=== PATIENT | female | born 1975 | race Caucasian/White ===

== ENCOUNTER 2022-02-20 16:30 | Emergency (ER) | payer BC, SELFPAY ==
[2022-02-20 17:05] VITALS: BP 115/82; PULSE 87; RESP 18; TEMP 36.1; O2SAT 100; BMI 30.8
--- NOTE | 2022-02-20 19:15 | ED.GENADULT ---
HPI - General Adult General Chief complaint: Extremity Pain/Injury, Upper Stated complaint: Possible infection in R arm Time Seen by Provider: 02/20/22 19:04 History of Present Illness HPI narrative: This 46-year-old female comes in with pain in the dorsal aspect of her right hand that extends up into her arm. She states that she has had incision and drainage in the past about a couple months ago to remove infection from this area. She returned to this [place] facility where this was done a couple weeks ago and the doctor there attempted to aspirate fluid from the dorsal aspect of her right hand. She was placed on an antibiotic at that time and has completed that treatment. She states that this did not help her symptoms at all. She feels like it is an infection. She does not report any injury event otherwise. She does not report any fevers. Related Data Home Medications Medication Instructions Recorded Confirmed estradiol PO DAILY 02/20/22 fluoxetine PO DAILY 02/20/22 gabapentin PO TID 02/20/22 lisinopril 10 mg tablet 10 mg PO DAILY 02/20/22 02/20/22 oxycodone PO PRN 02/20/22 Previous Rx's Medication Instructions Recorded methylprednisolone 4 mg tablets in See Rx Instructions PO .COMPLEX 02/20/22 a dose pack (Medrol (William)) #21 ea Allergies Allergy/AdvReac Type Severity Reaction Status Date / Time tramadol Allergy Intermediate shuts Verified 02/20/22 17:11 airway down aloe vera [From Flexall] Allergy Mild Rash Verified 02/20/22 17:11 menthol [From Flexall] Allergy Mild Rash Verified 02/20/22 17:11 vitamin E (d-alpha Allergy Mild Rash Verified 02/20/22 17:11 tocopherol) [From Flexall] shell fish Allergy Mild throat Uncoded 02/20/22 17:11 closes up Review of Systems Status of ROS: Reports: 10 or more systems reviewed and unremarkable except as noted in History and below Narrative: Constitutional: No fevers, no weight gain or loss. Eyes: No discharge. No vision changes. HENT: No congestion, no sore throat, no ear pain. Cardiovascular: No chest pain, no palpitations. Respiratory: No shortness of breath, no wheezes, no cough. Gastrointestinal: No abdominal pain, no vomiting, no diarrhea. Genitourinary: No dysuria, no hematuria. Musculoskeletal: Normal range of motion. Right hand pain extending up her right arm as described above. Skin: No rashes, no pruritis. Neurological: No dizziness, weakness, sensory change, speech change. Endo/Heme/Allergies: No bruising or bleeding. No polydipsia. Pysch: no suicidality, no anxiety, no insomnia. All other systems reviewed and are negative. Exam Narrative: Exam Narrative: Constitutional: Well-developed, well-nourished, no acute distress. HEENT: Normocephalic, atraumatic. Neck: Normal range of motion. Nontender. Supple. Heart: Intact distal pulses. Lungs: No chest discomfort. No wheezes, rhonchi, or rales. Abdomen: Nontender. Back: Normal range of motion. Extremities: Normal range of motion. This patient has tenderness on the dorsal aspect of her right hand. There is a surgical scar that appears to be healing normally. She has a small lump at the end of the surgical wound. There is some diffuse mild findings of erythema but no symptoms typical of cellulitis or abscess. Skin: Intact. No rash. Warm. No erythema or pallor. Neurologic: No altered sensation. No weakness. Alert and oriented. Psychiatric: No suicidality. No anxiety or depression. No insomnia. Nursing notes and vitals signs are reviewed. Const: Vital Signs, click to edit/add: Vital Signs - 24 hr 02/20/22 17:05 Temperature 97.0 F L Pulse Rate [Right Pulse Oximeter] 87 Respiratory Rate 18 Blood Pressure [Ri ght Upper Arm] 115/82 Pulse Oximetry 100 Oxygen Delivery Me thod Room Air Course Vital Signs Vital signs: Initial Vital Signs Temperature 97.0 F L 02/20/22 17:05 Temperature Source Temporal Artery Scan 02/20/22 17:05 Pulse Rate 87 02/20/22 17:05 Respiratory Rate 18 02/20/22 17:05 Blood Pressure 115/82 02/20/22 17:05 Blood Pressure Mean 93 02/20/22 17:05 Blood Pressure Position Sitting 02/20/22 17:05 Pulse Oximetry 100 02/20/22 17:05 Oxygen Delivery Method 02/20/22 17:05 Vital Signs Temperature 97.0 F L 02/20/22 17:05 Pulse Rate 87 02/20/22 17:05 Respiratory Rate 18 02/20/22 17:05 Blood Pressure 115/82 02/20/22 17:05 Pulse Oximetry 100 02/20/22 17:05 Oxygen Delivery Method 02/20/22 17:05 Temperature 97.0 F L 02/20/22 17:05 Pulse Rate 87 02/20/22 17:05 Respiratory Rate 18 02/20/22 17:05 Blood Pressure 115/82 02/20/22 17:05 Pulse Oximetry 100 02/20/22 17:05 Oxygen Delivery Method 02/20/22 17:05 Medical Decision Making MDM Narrative Medical decision making narrative: This patient reports pain in her right hand that radiates up her right arm. She does have some erythema in this area but there is no typical findings of cellulitis or abscess. A CBC is acquired and shows high normal white blood count with no left shift. I stated that this does not look like infection. She states that she takes oxycodone daily for chronic back pain. If I did give her an oral dose of dexamethasone 10 mg and a prescription for Medrol Dosepak. I advised her to follow-up with her primary physician for further evaluation and treatment as needed. Lab Data Labs: Lab Results 02/20/22 Range/Units 19:58 WBC 11.25 H (4.50-11.00) K/uL RBC 4.20 (4.00-5.20) m/uL Hgb 12.7 (12.0-16.0) gm/dL Hct 39.0 (33.0-51.0) % MCV 93 (80-100) fL MCH 30 (26-34) pg MCHC 33 (32-36) gm/dL RDW Coeff of Beatris 13.5 (11.5-15.5) % Plt Count 367 (140-440) K/uL Neut % (Auto) 60.7 (42.0-72.0) % Lymph % (Auto) 28.7 (20-44) % Atlantic % (Auto) 5.7 (0.0-11.0) % Eos % (Auto) 4.3 (0.0-7.0) % Baso % (Auto) 0.4 (0.0-3.0) % Neut # (Auto) 6.80 (1.7-7.0) K/uL Lymph # (Auto) 3.20 H (0.90-2.90) K/uL Atlantic # (Auto) 0.60 (0.00-0.90) K/UL Eos # (Auto) 0.50 (0.00-0.50) K/uL Baso # (Auto) 0.00 (0.00-0.30) K/uL Abs Immat Gran (auto) 0.00 (0.00-0.30) K/uL Imm/Tot Granulo (auto) 0.2 % Discharge Plan Discharge Clinical Impression: Hand pain, right Patient Disposition: Home, Self-Care Condition: Stable Additional Instructions: Take medication as prescribed. Follow up with MD or return if worsening. Prescriptions: New methylprednisolone [Medrol (William)] 4 mg tablets,dose pack See Rx Instructions .ROUTE .COMPLEX Qty: 21 0RF Rx Instructions: orally per package directions No Action lisinopril 10 mg tablet 10 mg PO DAILY fluoxetine PO DAILY gabapentin PO TID estradiol PO DAILY oxycodone PO PRN Stand Al[facility]
[2022-02-20 20:10] LABS: Basophils Percent Auto 0.4 % (0.0-3.0); Eosinophils Percent Auto 4.3 % (0.0-7.0); Hemoglobin* 12.7 gm/dL (12.0-16.0); Immature Granulocytes Pct Auto 0.2 %; Lymphocytes Percent Auto 28.7 % (20-44); Mean Corpuscular HGB Conc 33 gm/dL (32-36); Mean Corpuscular Hemoglobin 30 pg (26-34); Mean Corpuscular Volume 93 fL (80-100); Monocytes Percent Auto 5.7 % (0.0-11.0); Neutrophils Percent Auto 60.7 % (42.0-72.0); Platelet Count* 367 K/uL (140-440); RDW Coefficient of Variation % 13.5 % (11.5-15.5); White Blood Count* 11.25 K/uL (4.50-11.00)
[2022-02-20 20:11] LABS: Slide Review Reflex No
[2022-02-20 20:15] VITALS: BP 115/82; BP 118/79; PULSE 78; PULSE 87; RESP 18; TEMP 36.1; O2SAT 100
[2022-02-20] MEDS: dexAMETHasone 10 MG/ML inj PO (20:29)
== END 2022-02-20 22:03 | disposition home or self-care (01) ==
LOC: ED 20:46
PROVIDERS: Emergency Provider Emergency Medicine Emergency Medical Services
DX: M79.641 Pain in right hand (principal)
CPT/HCPCS: 36415; 85025; 99283; 99284; J1100